=== PATIENT | female | born 1955 | race Two or more races ===

== ENCOUNTER 2025-02-21 11:51 | Outpatient (OUT) | payer MEDICARE, SELFPAY ==
--- OUTSIDE RECORDS SUMMARY | 2025-02-21 12:03 | XMS_ITS | Patient Health Record ---
Author Organization [facility] Address [address] [place] [address] Care Team Providers Care Post Hole Digger Name Role Phone Subhash, Rusty Primary Care Provider [facility] Maria Alejandra Zarate Unavailable [phone] Reason For Referral No Information Immunizations Vaccine Route Administration Date Status Comme nts Pfizer LYNETTE Booster Dose COVID 19 (0.3mL admin) 12yr and up IM Intramuscular 08/17/2021 Administered zPfizer Covid19 Comirnaty (12yr and up) [place] (0.3mL)IM Intramuscular 10/09/2024dministered Encounters Encounter Location Date Provider Diagnosis [address] [place] [address] 10/09/2024 Maria Alejandra Multani Encounter for immunization Z23 Assessments Encounter Date Diagnosis (ICD Code) Assessment Notes Treatment Notes Treatment Clinical Notes Section Notes 10/09/2024 Encounter for immunization (ICD-10 - Z23) Medical Necessity: Seasonal Covid Vaccine VIS given and discussed, no concerns voiced; Pt instructed to stay in the clinic area for 15-30 minutes after the injection. See scanned Vaccine Administration Consent Form Plan Of Treatment No Information Insurance Providers Payer Name Payer Address Payer Phone Subscriber Number Group Number Insured Name Patient Relationship to Insured Coverage Start Date Coverage End Date [place] [address] [place] [place] [address] [id number] Garza - patient is the [id number] 2021ETNA MEDICARE SU[address]MENTPO [address] [address] [place] [id number], SylviaSelf - patient is the insured
--- OUTSIDE RECORDS SUMMARY | 2025-02-21 12:03 | XMS_ITS ---
Author Organization [facility] Address [address] [place] [address] Care Team Providers Care Mixing Technician Name Role Phone Rusty Cullen DO Unavailable [phone] Selene Scott MD Unavailable [phone] Carolyn Ruiz DO Unavailable [phone] Nishant Rocha MD Unavailable [phone] Garrett Flores MD Primary Care Provider [phone] Active Problems ProblemNoted DateDiagnosed DateVocal cord vwlemchvf84/25/2023Nontoxic single thyroid dkyysh0809/29/2022H/O bilateral rvnzqpqcza68/02/2023History of breast esdbmm4404/03/2021Overactive dysuerg2906/27/2020Type 2 diabetes mellitus, without long-term current use of nkvnxcy8311/20/2018Mixed xqqwxysfeydqqh59/15/2017 Depressive /04/2015Primary wzmelxnhoxou26/04/2015Hypothyroidism 02/26/2015Spondylosis without iojrplslrk59/04/2015OSA (obstructive sleep apnea) 02/26/2015 Current Treatment and Therapy Plans No current plan information found. Past Treatment and Therapy Plans No past plan information found. Lifetime Dose Tracking * ChemicalLifetime DoseAutomatic EntryManual EphgfMbislsutq99 mSv12 mSv0 mSv Resolved Problems ProblemNoted DateDiagnosed DateResolved DateNeed for immunization against rovytjdnh70/12/2024Medicare annual wellness visit, subsequent /5ACP (advance care planning)/12/2024Elevated LFTs PAP (continuous positive airway pressure) dependence Elevated parathyroid znnauck94 Axmoecxujhjzg36OA (osteoarthritis of spine)09/24/2022 05/03/20249540Vajctoxtqscpnogwlyd66/19/202301/09/2025Otitis externa of right ear Vitamin D asvsdtdhkg80hilles bursitis alcaneal spurUrinary incontinence Malignant neoplasm of female dawrxy77 Morbid pbbmuon37arpal tunnel nmhrisjv22
--- OUTSIDE RECORDS SUMMARY | 2025-02-21 12:03 | XMS_ITS | Clinical Summary ---
Author Organization [facility] Address [address] [place] [address] Phone Care Team Providers Care Design Engineer Agricultural Equipment Name Role Phone Unavailable Primary Care Provider Unavailabl e Social History Tobacco UseTypesPacks/DayYears UsedDateSmoking Tobacco: Never Assessed CommentsUnknownSex and Gender InformationValueDate RecordedSex Assigned at Not on fileLegal PzoFrazcb50/26/2022 3:27 PM ESTGender IdentityNot on fileSexual OrientationNot on file Plan of Treatment Health MaintenanceDue DateLast DoneCommentsCT Dqsmdeoustvv74/05/1957Colonoscopy 1956Colorectal Cancer Xocjmeugu06/05/1957FIT-DNA (Cologuard)1956FIT 1956Lipid Panel1956Medicare Annual Wellness Visit (AWV)1955 Yelhtmgnbpmpa19/05/1957MMR Vaccines (1 of 1 - Standard series)1957 Hepatitis C Azujpainh78/05/1975DTaP/Tdap/Td Vaccines (1 - Tdap)1978 Xchytzffw91/05/1997Pneumococcal Vaccine (1 of 1 - PCV)2006Zoster Vaccines (1 of 2)2006Bone Density Scan2021Influenza Vaccine (#1)2024 COVID-19 Vaccine (1 - season)2024RSV High Risk: (Elderly (60+) or Population) (1 - 1-dose 75+ series)2031HIB VaccinesAged OutNo longer eligible based on patient's age to complete this topicHPV VaccinesAged OutNo longer eligible based on patient's age to complete this topicHepatitis A VaccinesAged OutNo longer eligible based on patient's age to complete this topic Hepatitis B VaccinesAged OutNo longer eligible based on patient's age to complete this topicIPV VaccinesAged OutNo longer eligible based on patient's age to complete this topicMeningococcal VaccineAged OutNo longer eligible based on patient's age to complete this topicRotavirus VaccinesAged OutNo longer eligible based on patient's age to complete this topic Insurance
--- OUTSIDE RECORDS SUMMARY | 2025-02-21 12:03 | XMS_ITS | Clinical Summary ---
Author Organization [facility] Address [address] [place] [address] Care Team Providers Care Coremaker Supervisor Name Role Phone Rusty Cullen Markell DO Unavailable [phone] Selene Scott MD Unavailable [phone] Carolyn Ruiz DO Unavailable [phone] Nishant Rocha MD Unavailable [phone] Garrett Flores MD Primary Care Provider [phone] Allergies Active AllergyReactionsCriticalityNoted DateCommentsAce InhibitorsCoughLow 08/04/2021 Medications MedicationSigDispense QuantityRefillsLast FilledStart DateEnd DateStatus aspirin (EQ Aspirin Adult Low Dose) 81 MG EC tablet Take 81 mg by mouth in the morning.Active Ascorbic Acid (vitamin C) 1000 MG tablet Active Lutein 20 MG tablet Active Vitamin E 400 units tablet Active venlafaxine (Effexor) 75 MG tablet Indications:Depressive disorderTake 1 tablet (75 mg) by mouth Daily05/03/2024 Active SITagliptin-metFORMIN (Janumet) 50-1000 MG tablet Indications:Type 2 diabetes mellitus with hyperosmolarity without coma, without long-term current use of insulin (HCC)Take 1 tablet by mouth in the morning and 1 tablet before bedtime. 180 tablet 5Active losartan (Cozaar) 25 MG tablet Indications:Primary hypertensionTake 1 tablet (25 mg) by mouth Daily 90 tablet 5Active KRILL OIL PO Take 1 capsule by mouth 1 (one) time each day at the same timeActive Multiple Vitamin (MULTI VITAMIN DAILY PO) Take 1 tablet by mouth in the morning.Active traZODone (Desyrel) 50 MG tablet Take 50 mg by mouth as needed at bedtime for sleep5Active oxybutynin XL (Ditropan-XL) 10 MG 24 hr tablet Indications:Overactive bladderTake 1 tablet (10 mg) by mouth Daily Do not crush, chew, or split. 90 tablet 504/6Active atorvastatin (Lipitor) 10 MG tablet Indications:Mixed hyperlipidemiaTAKE 1 TABLET BY MOUTH AT BEDTIME 90 tablet 5Active levothyroxine (Synthroid, Levoxyl) 150 MCG tablet Indications:Hyperparathyroidism (HCC)Take 1 tablet (150 mcg) by mouth Daily 90 tablet 5Active nitrofurantoin, macrocrystal-monohydrate, (Macrobid) 100 MG capsule Indications:Urinary frequencyTake 1 capsule (100 mg) by mouth in the morning and 1 capsule (100 mg) before bedtime. Do all this for 7 days. 14 capsule 5Active nitrofurantoin, macrocrystal-monohydrate, (Macrobid) 100 MG capsule Indications:Urinary frequencyTake 1 capsule (100 mg) by mouth in the morning and 1 capsule (100 mg) before bedtime. Do all this for 7 days. 14 capsule Discontinued Active Problems ProblemNoted DateDiagnosed DateVocal cord ntyqfradr43/25/2023Nontoxic single thyroid woakqt0009/29/2022H/O bilateral dshlavbwja42/02/2023History of breast rjpjxn9704/03/2021Overactive yolqvko4106/27/2020Type 2 diabetes mellitus, without long-term current use of qcbhrug1111/20/2018Mixed icznpdbzwhtslp89/15/2017 Depressive /04/2015Primary ghmrvcyzllkp02/04/2015Hypothyroidism 02/26/2015Spondylosis without qegdtryipp17/04/2015OSA (obstructive sleep apnea) 02/26/2015 Resolved Problems ProblemNoted DateDiagnosed DateResolved DateNeed for immunization against eefqfciye33/12/2024Medicare annual wellness visit, subsequent /5ACP (advance care planning)10Elevated LFTs /PAP (continuous positive airway pressure) dependence Elevated parathyroid nttqcho38 Ggqeqrbjrwaie12OA (osteoarthritis of spine)09/24/2022 05/03/20243567Hdwkhrkyrnvhavwbbnh33/19/202301/09/2025Otitis externa of right ear Vitamin D ojpsrhycyq01hilles bursitis alcaneal spurUrinary incontinence Malignant neoplasm of female aahhiz12 Morbid rkulqdy08arpal tunnel stnkyskn27 Encounters DateTypeDepartmentCare KzygBobotdjggck20/16/2025[facility] [address] [place] [address] Jacey Judge LPN Hyperparathyroidism (HCC)01/05/2025[facility] [address] [place] [address] Rusty Cullen, DO Mixed hyperlipidemiafrom Last 3 Months Immunizations ImmunizationAdministration DatesNext DueABRYSVO - Respiratory syncytial virus (RSV), vaccine, bivalent, protein subunit RSV prefusion F, diluent reconstituted, 0.5 mL, PF02/11/2023Influenza, High Dose Seasonal, Preservative Free02/08/2022Influenza, Seasonal, Quadrivalent, Avsszifyon96/24/2024,02/08/2023 Influenza, injectable, MDCK, preservative free, yflfhyottspj06/13/2021Influenza, injectable, MDCK, /16/2018Influenza, injectable, quadrivalent 01/20/2017,01/23/2016Influenza, injectable, quadrivalent, preservative free 01/20/2017,01/17/2017,01/23/2016Influenza, seasonal, brnlxvjels49/01/2020 Influenza, seasonal, injectable, preservative free01/18/2019Influenza, seasonal, intradermal, preservative free12/24/2014Novel ntruwyzkp-D3D3-75, preservative-free04/10/2009Pneumococcal Conjugate PCV 6109AYGO-BNA-0 (COVID-19) vaccine, mRNA, spike protein, LNP, PF, po-sucrose, 30 mcg/0.3 mL 02/11/2023Zoster, Vznbriqxeza23/30/2019,07/07/2018 Family History Medical HistoryRelationNameCommentsHearing lossFatherKenCritical access hospitalHeart disease FatherKenton RiscoHypertensionFatherGeisinger Medical CentermanDiabetesMotherMercy Hospital [facility] Heart diseaseMotherNorthwest Medical Centerrt failureMotherFederal Medical Center, RochesterpertensionMother [facility] RapidsCancerOthergrandparentsBreast cancerPaternal GrandmotherHilda Risco CancerPaternal GrandmotherHilda [facility] Known ProblemsSister2 sistersRelation NameStatusCommentstherWestern Wisconsin HealtheceasedMotherSsm Health St. Mary'S Hospital JanesvillemanDeceasedOther grandparentsPaternal GrandmotherHilda ShermanSister2 sisters Social History Tobacco UseTypesPacks/DayYears UsedDateSmoking Tobacco: NeverPassive Smoke Exposure: NeverSmokeless Tobacco: Never Tobacco Cessation:Counseling Given: Not Answered Alcohol UseStandard Drinks/WeekCommentsNot Currently0 (1 standard drink = 0.6 oz pure alcohol)Alcohol: 6 or more drinks / less than monthly; 1 or 2 drinks on typical day . Caffeine: 1-2 cups/day coffeeAUDIT-CAnswerDate RecordedQ1: How often do you have a drink containing alcohol?Never08/16/2023Q2: How many drinks containing alcohol do you have on a typical day when you are drinking?Patient does not drink08/16/2023Q3: How often do you have six or more drinks on one occasion?Never08/16/2023HQ-2AnswerDate RecordedPatient Health Questionnaire-2 Dmtdx244regnantCommentsNoSex and Gender InformationValueDate Recorded Sex Assigned at BirthNot on fileLegal ZrwZeyncm99/15/2023 7:16 PM EDTGender NuwjeeyrVcgxym99/15/2023 7:16 PM EDTSexual XkixiuyjldpFpslpmeq55/15/2023 7:16 PM EDT Last Filed Vital Signs Vital SignReadingTime TakenCommentsBlood Etdxfldl144/7807 1:32 PM EDT Xyygs4809 1:32 PM NCCQaiwcuaseji42.3 ??C (97.3 ??F)12/17/2022 10:51 AM EDTRespiratory Mhoc9243 5:04 AM EDTOxygen Xowdeiyczj68%10/30/2024 1:32 PM EDTInhaled Oxygen Concentration--Oqnnmu060 kg (233 lb)10/30/2024 1:32 PM EDT Bufbym398.6 cm (5' 4 )10/30/2024 1:32 PM EDTBody Mass Index39.9910/30/2024 1:32 PM EDT Plan of Treatment DateTypeDepartmentCare Team (Latest Contact Info)Cjjkupzwirk51/13/2026 1:30 PM ESTOffice Visit [facility] [address] [facility] [address] [place] [address] 08/07/2025 11:00 AM EDTOffice Visit [facility] [address] [facility] [address] [place] [address] Carolyn Ruiz DO [address] [facility] [address] [place] [address] Health MaintenanceDue DateLast DoneCommentsCT Nmbnluuftczw36/05/1957FIT-DNA 1956FIT1956FOBT1956 1958Tdrklpvvcqagl71/05/1957DTaP/Tdap/Td Vaccines (1 - Tdap)1963COVID-19 Vaccine (2024- season)2024 10/09/2024, 02/11/2023, 08/17/2021, Additional history existsInfluenza Vaccine (#1), 02/08/2023, 02/08/2022, Additional history exists Diabetes: Hemoglobin A1C/, 04/26/2024, 12/31/2023, Additional history existsDiabetes: Urine Protein Ocnzkhmxs61/02/87075304/26/2024, 08/05/2023, 07/28/2021, Additional history existsMedicare Annual Wellness (AWV)06/13/2025 06/13/2024, 2Diabetes: Retinopathy Qcfzxtals74, 04/13/2022, 04/07/2021, Additional history sacccgJnewqvojtwt83/06/2033 04/30/2022, 02/07/2017Colorectal Cancer Xpmkkohln07/06/2033Pneumococcal Vaccine: 65+ TezsyTgfmzqxwd76/24/2024HIB VaccinesAged OutNo longer eligible based on patient's age to complete this topicHPV VaccinesAged OutNo longer eligible based on patient's age to complete this topicHepatitis A VaccinesAged OutNo longer eligible based on patient's age to complete this topicHepatitis B VaccinesAged OutNo longer eligible based on patient's age to complete this topicIPV Vaccines Aged OutNo longer eligible based on patient's age to complete this topic Meningococcal B VaccineAged OutNo longer eligible based on patient's age to complete this topicMeningococcal VaccineAged OutNo longer eligible based on patient's age to complete this topicRotavirus VaccinesAged OutNo longer eligible based on patient's age to complete this topic Procedures Procedure NamePriorityDate/TimeAssociated DiagnosisCommentsHEMOGLOBIN A1C WITH ZFAHsvmdsj82/30/2025 7:58 AM EDT Type 2 diabetes mellitus with other specified complication, without long-term current use of insulin (HCC) DIABETIC RETINOPATHY SCREENING - OU - BOTH SCFCMagnwec33/03/2025 3:45 PM EST ALBUMIN, URINE, WIVMPOGugavbe79/02/2025 7:48 AM EST RZTBVTFCPXRNidmwgf59/06/2023 12:00 PM EST from Last 3 Months or Most Recently Relevant to Health Maintenance Results * Hemoglobin a1c with eag (10/22/2024 7:58 AM EDT)ComponentValueRef RangeTest MethodAnalysis TimePerformed AtPathologist SignatureHEMOGLOBIN A1C5.34.3 - 5.6 %10/22/2024 10:44 AM [facility] CtrComment: Increased risk for diabetes: 5.7 - 6.4 diabetes: >6.4 glycemic control for adults with diabetes: <7.0 ESTIMATED AVERAGE KGYTCOZ938ni/dL10/22/2024 10:44 AM [facility] CtrSpecimen (Source)Anatomical Location / LateralityCollection Method / VolumeCollection TimeReceived TimeBlood (Blood)10/22/2024 7:58 AM EDT10/22/2024 7:58 AM EDT Narrative Authorizing ProviderResult TypeResult StatusDamien Cao NPBEL BLOOD ORDERABLESFinal ResultPerforming OrganizationAddressCity/State/ZIP CodePhone Number [facility] [address] [place] [address], [facility] [address] [place] [address] * Diabetic Retinopathy Screening - OU - Both Eyes (05/28/2024 3:45 PM EST) Anatomical RegionLateralityModalityHeadOther Narrative Authorizing ProviderResult TypeResult StatusNoms Provider Unallocated MDOPHTH PHOTOGRAPHYFinal Result * (ABNORMAL) Albumin, urine, random (04/26/2024 7:48 AM EST)ComponentValueRef RangeTest MethodAnalysis TimePerformed AtPathologist SignatureMICROALBUMIN, URINE (RANDOM)5.0(H)0.0 - 1.8 mg/dL04/26/2024 8:43 AM [facility] CtrSpecimen (Source)Anatomical Location / LateralityCollection Method / VolumeCollection TimeReceived TzalKvfmu33/02/2025 7:48 AM EST04/26/2024 7:48 AM EST Narrative Authorizing ProviderResult TypeResult StatusRusty PRINGLE URINE ORDERABLESFinal ResultPerforming OrganizationAddressCity/State/ZIP CodePhone Number [facility] [address] [place] [address], [facility] [address] [place] [address] * Colonoscopy (04/30/2022 12:00 PM EST)Anatomical RegionLateralityModality EndoscopySpecimen (Source)Anatomical Location / LateralityCollection Method / VolumeCollection TimeReceived Time04/30/2022 12:00 PM EST Narrative 04/30/2022 12:00 PM EST PERFORMED AT [facility] LOCATION:[id number] diverticulosis, hemorrhoids, repeat in 5 years Procedure Note CONVERSION, GENERIC - 09/08/20[address]MED [address] [facility] LOCATION:[id number] diverticulosis, hemorrhoids, repeat in 5 years Authorizing ProviderResult TypeResult StatusJemendez Cullen DOENDOSCOPY PROCEDURE ORDERABLESFinal Result from Last 3 Months or Most Recently Relevant to Health Maintenance Insurance Care Teams Team MemberRelationshipSpecialtyStart DateEnd Date Rusty Cullen DO [address] [place] [address] PCP - ACO Reach09/16/22 Garrett Flores MD [address] [place] [address] PCP - GeneralInternal Medicine01/03/25 Selene Scott MD [address] [place] [address] Referring QqumpcsgcNkwerklodbzgjm95/17/23 Carolyn Ruiz DO [address] [place] [address] Referring PhysicianObstetrics and Vuahxnekat48/17/23 Nishant Rocha MD [address] [place] [address] Referring MpsyviwagLwdcdgqtbz91/24/24
--- OUTSIDE RECORDS SUMMARY | 2025-02-21 12:03 | XMS_ITS | Clinical Summary ---
Author Organization [facility] Address [address] [facility] [place] [address] Care Team Providers Care Livestock Judging Coach Name Role Phone Unavailable Primary Care Provider Unavailabl e Source Comments The following information is NOT included in Care Everywhere downloads:Psychiatric notes, ECG results, Cardiac Rehab notes, Pulmonary Function notes, data from SmartForms (includes but not limited toPregnancy data,audiograms, eye exams, pre-surgical evaluation notes, well-child exam data).[facility] Allergies No known active allergies Medications MedicationSigDispense QuantityRefillsLast FilledStart DateEnd DateStatus Exenatide (BYDUREON) 2 MG SUSR Inject under the skin once weeklyActive levothyroxine (SYNTHROID) 125 MCG tablet Take 125 mcg by mouth dailyActive venlafaxine (EFFEXOR) 75 MG tablet Take 75 mg by mouthActive aspirin 81 MG tablet Take 81 mg by mouth daily Takes 162mg.Active vitamin C (ASCORBIC ACID) 500 MG tablet Take 500 mg by mouth dailyActive vitamin E 400 UNIT capsule Take 400 Units by mouth dailyActive Multiple Vitamin (MULTIVITAMIN ORAL) Take by mouthActive FISH OIL Active triamterene-hydrochlorothiazide (MAXZIDE-25) 37.5-25 MG tablet Take 1 Tab by mouth dailyActive Active Problems ProblemNoted DateDiagnosed DateCarpal tunnel qipfeewx27/16/2012 Social History Tobacco UseTypesPacks/DayYears UsedDateSmoking Tobacco: NeverSmokeless Tobacco: NeverAlcohol UseStandard Drinks/WeekCommentsYes0 (1 standard drink = 0.6 oz pure alcohol)rareSubstance UseTypesUse/WeekCommentsNoCommentsUnknownSex and Gender InformationValueDate RecordedSex Assigned at BirthNot on fileLegal Sex Logsoq3602/27/2012 1:27 PM ESTGender IdentityNot on fileSexual OrientationNot on file Plan of Treatment Health MaintenanceDue DateLast FycbLtewwabvLzfhfewekcz19/05/1956Hepatitis C Ffqdnzxt00/05/1975Tdap Zrijznj8005/30/1974Hepatitis A (HAV) Vaccine (optional start 19+ years)1975Tetanus (Td or Tdap) Ibsykko0805/30/1975Mammography 1996CRC Blpwxgpwa70/05/1861Edwalxzmaps14/05/2002Cologuard (Stool DNA) 2001FIT2001Pneumococcal Vaccine(s) (50+ yrs) (1 of 1 - PCV) 2006Shingles (RZV) Vaccine (1 of 2)2006Hepatitis B (HBV) Vaccine (optional start 60+ years)2016Bone Bowtojgmklqs98/05/2022COVID-19 Vaccine (1 - 2024-26 season)2024Influenza Vaccine (#1)2024RSV vaccine (adult) (1 - 1-dose 75+ series)2Pap SmearDiscontinued Insurance * Guarantor: Néstor Garza TypeRelation to PatientDate of BirthPhone Billing AddressPersonal/PzloifRbfd38/05/1956 [address] [place] [address]
[2025-02-21 12:50] LABS: Glucose Urine UA NEGATIVE (NEGATIVE)
[2025-02-21 14:16] LABS: Cast Seen? NONE SEEN #/LPF (NONE SEEN); Crystals Seen? None Seen #/HPF (None Seen)
== END 2025-02-21 11:52 | disposition home or self-care (01) ==
LOC: LAB 12:00
PROVIDERS: PCP Internal Medicine; Visit Provider Obstetrics & Gynecology
DX: R35.0 Frequency of micturition (principal)
CPT/HCPCS: 81001; 87086